=== PATIENT | female | born 1970 | race Asian ===

== ENCOUNTER 2021-10-27 23:14 | Emergency (ER) | payer OTHER ==
[2021-10-27 23:39] VITALS: TEMP 97.6; BMI 24.2
[2021-10-28] MEDS ORDERED: ACETAMINOPHEN INJECTION 100 ML IVPB ONE (00:31)
[2021-10-28] MEDS ORDERED: SODIUM CHLORIDE 0.9% 500 ML INFUS.BAG IV ONE (00:39)
[2021-10-28] MEDS ORDERED: ACETAMINOPHEN 1000 MG/100 ML BAG IVPB ONE (00:56)
[2021-10-28 01:52] VITALS: BP 102/63; PULSE 65
[2021-10-28 02:03] LABS: EPI CELLS 4 /uL (0-25.1); HYALINE CASTS 4 /uL (0-3.1); URINE APPEARANCE CLEAR; URINE BACTERIA 7852 /uL (0-1359); URINE BILIRUBIN NEGATIVE (NEGATIVE); URINE COLOR YELLOW; URINE GLUCOSE (UA) NEGATIVE (NEGATIVE); URINE KETONE NEGATIVE (NEGATIVE); URINE LEUK ESTERASE 1+ (NEGATIVE); URINE NITRITE NEGATIVE (NEGATIVE); URINE PROTEIN NEGATIVE (NEGATIVE); URINE RBC 11 /uL (0-23.9); URINE UROBILINOGEN 0.2 mg/dL (0.2-1.0); URINE WBC 374 /uL (0-25.8)
[2021-10-28 02:13] LABS: ALBUMIN 3.7 g/dl (3.4-5.0); BLOOD UREA NITROGEN 18.9 mg/dL (7-18)
[2021-10-28 02:16] LABS: CREATININE 0.7 mg/dL (0.55-1.3)
[2021-10-28 02:18] LABS: BILIRUBIN,TOTAL 0.5 mg/dL (0.2-1); TOT PROT 7.2 g/dl (6.4-8.2)
[2021-10-28] MEDS ORDERED: CEFTRIAXONE 1,000 MG in DEXTROSE 5%-WATER - 50 ML IVPB ONE (02:28)
[2021-10-28 03:00] LABS: BASO % 0.8 % (0-2.0); EOS % 2.7 % (0-4.5); HEMATOCRIT 35.7 % (32.4-45.2); HEMOGLOBIN 11.8 GM/dL (10.7-15.3); LYMPH % 35.4 % (8-40); MCH 26.6 pg (25.7-33.7); MEAN CELL VOLUME 80.5 fl (80-96); MEAN PLT VOLUME 8.2 fl (7.5-11.1); MONO % 9.2 % (3.8-10.2); NEUT % 51.9 % (42.8-82.8); PLATELET COUNT 243 10^3/uL (134-434); RBC 4.44 M/mm3 (3.60-5.2); RDW 13.2 % (11.6-15.6)
[2021-10-28] MEDS ORDERED: CEFTRIAXONE 1 GM/50 ML BAG ONE (03:39)
== END 2021-10-28 05:29 | disposition home or self-care (01) ==
LOC: JER 23:14
PROC: 3E0333Z Introduction of Anti-inflammatory into Peripheral Vein, Percutaneous Approach (ICD-10-PCS; principal; 2021-10-27)
PROC: 3E03329 Introduction of Other Anti-infective into Peripheral Vein, Percutaneous Approach (ICD-10-PCS; 2021-10-27)
DX: M54.50 Low back pain, unspecified (principal); N39.0 Urinary tract infection, site not specified
CPT/HCPCS: 36415; 72131-TC; 74177-TC; 80053; 81003; 83690; 84703; 85025; 87086; 87186; 99285-25